=== PATIENT | female | born 1955 | race Caucasian/White ===

== ENCOUNTER 2022-09-15 06:52 | Day surgery (SDC) | payer MEDICARE, OTHER ==
[2022-09-15] MEDS ORDERED: fentaNYL 50 MCG/ML SDV ONE (07:16)
[2022-09-15] MEDS ORDERED: Midazolam 1 MG/ML 2 ML SDV ONE (07:16)
[2022-09-15] MEDS ORDERED: Propofol 200 MG/20 ML SDV ONE (07:17)
[2022-09-15] MEDS ORDERED: Dextrose 5%-Lactated Ringers 1,000 ML IV SCH (07:54)
[2022-09-15] MEDS ORDERED: Glycopyrrolate 0.2 MG/ML 2 ML SDV IVPUSH ONE (08:00)
[2022-09-16] MEDS ORDERED: Dextrose 5%-Lactated Ringers 1,000 ML IV SCH (07:45)
== END 2022-09-15 09:53 | disposition home or self-care (01) ==
LOC: JP.SDS 06:52
PROVIDERS: ATTEND Surgery
DX: K31.89 Other diseases of stomach and duodenum (principal); K21.9 Gastro-esophageal reflux disease without esophagitis; K44.9 Diaphragmatic hernia without obstruction or gangrene; K29.70 Gastritis, unspecified, without bleeding; E78.5 Hyperlipidemia, unspecified; I10 Essential (primary) hypertension; E07.9 Disorder of thyroid, unspecified; E66.9 Obesity, unspecified
CPT/HCPCS: 43239; 87081; J2250; J2704; J3010; J3490; J7121

== ENCOUNTER 2022-09-30 07:33 | Inpatient (IN) | payer MEDICARE, OTHER ==
[2022-09-30] MEDS ORDERED: fentaNYL 250 MCG/5 ML SDV ONE (07:48)
[2022-09-30] MEDS ORDERED: Succinylcholine 200 MG/10 ML MDV ONE (07:48)
[2022-09-30] MEDS ORDERED: Neostigmine Methylsulfate 1 MG/ML 5 ML Syringe ONE (07:48)
[2022-09-30] MEDS ORDERED: Ondansetron 4 MG/2 ML SDV ONE (07:48)
[2022-09-30] MEDS ORDERED: Rocuronium 50 MG/5 ML Vial ONE (07:48)
[2022-09-30] MEDS ORDERED: Glycopyrrolate 0.2 MG/ML 5 ML MDV ONE (07:48)
[2022-09-30] MEDS ORDERED: Dexamethasone 4 MG/ML SDV ONE (07:48)
[2022-09-30] MEDS ORDERED: Propofol 200 MG/20 ML SDV ONE (07:48)
[2022-09-30] MEDS ORDERED: Scopolamine 1.5 MG Transdermal Patch TOP ONE (08:00)
[2022-09-30] MEDS ORDERED: Lidocaine 1% with EPINEPHrine 1:100,000 50 ML MDV ONE (08:01)
[2022-09-30] MEDS ORDERED: Bupivacaine 0.5% 50 ML MDV ONE (08:01)
[2022-09-30] MEDS: Dextrose 5%-Lactated Ringers 1,000 ML IV SCH ×2 (08:34→18:29)
[2022-09-30] MEDS ORDERED: Ketamine 500 MG/5 ML MDV IV SCH (09:00)
[2022-09-30] MEDS ORDERED: Ketamine 15 MG in Sodium Chloride 0.9% 19.85 ML IV SCH (09:00)
[2022-09-30] MEDS ORDERED: ceFAZolin 2 GM in Premix Bag 1 BAG IV ONE (09:30)
[2022-09-30] MEDS ORDERED: Sugammadex Sodium 200 MG/2 ML VIAL ONE (11:11)
[2022-09-30] MEDS ORDERED: Labetalol 20 MG/4 ML Syringe ONE (11:20)
[2022-09-30] MEDS ORDERED: Pantoprazole 40 MG Vial IVPUSH SCH (11:30)
[2022-09-30] MEDS ORDERED: Labetalol 20 MG/4 ML Syringe IVPUSH PRN (12:02)
[2022-09-30] MEDS ORDERED: HYDROmorphone 2 MG Tab PO PRN (12:06)
[2022-09-30] MEDS ORDERED: HYDROmorphone 1 MG/ML Syringe IV PRN (13:00)
[2022-09-30] MEDS ORDERED: Metoclopramide 10 MG/2 ML SDV IVPUSH PRN (13:00)
[2022-09-30] MEDS ORDERED: HYDROmorphone 0.5 MG/0.5 ML Syringe IVPUSH PRN (13:00)
[2022-09-30] MEDS ORDERED: Losartan 50 MG Tab PO SCH ×2 (13:00→21:00)
[2022-09-30] MEDS ORDERED: hydrOXYzine HCl 50 MG/ML SDV IM PRN (13:00)
[2022-09-30] MEDS ORDERED: Ondansetron 4 MG/2 ML SDV IVPUSH PRN (13:00)
[2022-09-30] MEDS: Levothyroxine 88 MCG Tab PO SCH (13:39)
[2022-09-30] MEDS: Acetaminophen 325 MG Tab PO SCH ×2 (16:22→21:30)
[2022-09-30] MEDS: ceFAZolin 1 GM in Premix Bag 1 BAG IV SCH (16:23)
[2022-09-30] MEDS: SCOPOLAMINE PATCH CHECK TOP SCH (18:14)
[2022-10-01] MEDS: ceFAZolin 1 GM in Premix Bag 1 BAG IV SCH ×2 (00:54→08:02)
[2022-10-01] MEDS: Acetaminophen 325 MG Tab PO SCH ×2 (03:13→09:28)
[2022-10-01] MEDS: Dextrose 5%-Lactated Ringers 1,000 ML IV SCH (05:03)
[2022-10-01] MEDS ORDERED: Pantoprazole 40 MG Tab.CR PO SCH (08:00)
[2022-10-01] MEDS: Levothyroxine 88 MCG Tab PO SCH (08:02)
[2022-10-01] MEDS: SCOPOLAMINE PATCH CHECK TOP SCH (08:27)
[2022-10-01] MEDS ORDERED: Aspirin 81 MG Tab.EC PO SCH (09:00)
== END 2022-10-01 10:22 | disposition home or self-care (01) | DRG 328 ==
LOC: JP.SDSSCHI 07:33 → JP.2SS 11:15
PROVIDERS: ADMIT Surgery; ATTEND Surgery
PROC: 0DV44ZZ Restriction of Esophagogastric Junction, Percutaneous Endoscopic Approach (ICD-10-PCS; principal; 2022-09-30)
PROC: 0BUT4JZ Supplement Diaphragm with Synthetic Substitute, Percutaneous Endoscopic Approach (ICD-10-PCS; 2022-09-30)
PROC: 0WBC4ZZ Excision of Mediastinum, Percutaneous Endoscopic Approach (ICD-10-PCS; 2022-09-30)
DX: K44.9 Diaphragmatic hernia without obstruction or gangrene (principal); I10 Essential (primary) hypertension; K21.9 Gastro-esophageal reflux disease without esophagitis; Z86.16 Personal history of COVID-19
CPT/HCPCS: 88304; A9270-GY; C1713; C1781; C9113; J0131; J0171; J0330; J0690; J1100; J1170; J2405; J2704; J2710; J2795; J3010; J3490; J7121